=== PATIENT | female | born 1950 | race Caucasian/White ===

== ENCOUNTER 2025-06-03 10:57 | Emergency (ER) | payer OTHER ==
[~2025-06-03] VITALS: Ht 170.2 cm; Wt 65.2 kg
[2025-06-03 11:21] LABS: BLOOD/HGB, URINE NEGATIVE (Negative); KETONE, URINE NEGATIVE (Negative); LEUK ESTERASE, URINE NEGATIVE (negative); NITRITE, URINE NEGATIVE (negative)
[2025-06-03] MEDS ORDERED: BRIMONIDINE TART5 ML OPTH (13:14)
[2025-06-03] MEDS ORDERED: AMLODIPINE BESY10 MG PO (13:14)
[2025-06-03] MEDS ORDERED: METHYLPHENIDATE5 MG PO (13:14)
[2025-06-03] MEDS ORDERED: HYDROCHLOROTH12.5 MG PO (13:14)
[2025-06-03] MEDS ORDERED: PREDNISOLONE ACE5 ML (13:15)
[2025-06-03] MEDS ORDERED: METFORMIN HCL500 M1 PO (13:15)
[2025-06-03] MEDS ORDERED: DICLOFENAC SODIU5 ML (13:15)
[2025-06-03] MEDS ORDERED: LOSARTAN POTAS100 MG PO (13:15)
[2025-06-03] MEDS ORDERED: MACROBID 100 M100 MG PO (13:33)
[2025-06-03 13:58] VITALS: BP 135/60
== END 2025-06-03 13:59 | disposition home or self-care (01) ==
LOC: ED 10:57
PROVIDERS: Emergency Medicine
DX: N39.0 Urinary tract infection, site not specified (principal); Z88.2 Allergy status to sulfonamides; Z79.84 Long term (current) use of oral hypoglycemic drugs; Z79.52 Long term (current) use of systemic steroids; Z79.899 Other long term (current) drug therapy
CPT/HCPCS: 81003; 99283